=== PATIENT | female | born 1975 | race Caucasian/White ===

== ENCOUNTER 2020-10-15 10:54 | Emergency (ER) | payer SELFPAY ==
[~2020-10-15] VITALS: Ht 167.6 cm; Wt 56.0 kg
[2020-10-15 11:05] VITALS: BP 128/65
[2020-10-15] MEDS ORDERED: SMZ/TMP 800/160MG TABLET. PO ONE (11:45)
[2020-10-15] MEDS ORDERED: LIDOCAINE 1% Multi-Dose 20 ML VIAL. INJ ONE (11:45)
[2020-10-15] MEDS ORDERED: MUPI22OI2 TP (12:54)
[2020-10-15] MEDS ORDERED: HYDR-2761 PO (12:54)
[2020-10-15] MEDS ORDERED: SULF1TAB24 PO (12:54)
--- NOTE | 2020-10-15 12:54 | PHYS DOC ---
Past Medical History Past Medical History: Abscess Past Surgical History: Smoking Status: Current Every Day Smoker Alcohol Use: Occasionally Drug Use: None General Adult EDM: Chief Complaint: ABSCESS HPI: HPI: Patient is a 45 year old female presents emergency department complaining of an abscess on the right side of her neck for the past 2 weeks. 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 Patient states that she had an abscess on her neck one other time approximately a year and a half ago. Patient states she has not had any other abscesses or skin infections since or before her 1 year and a half ago. Patient states it does not hurt unless you touch it. Patient states that she has not tried to express anything from the abscess. Patient denies fever chills, denies shortness of breath or congestion, denies chest pains. Patient states her tetanus immunization is up-to-date. Patient denies any allergies to medications, denies taking any home medications. Patient states they put her on an oral antibiotic last time and it worked well for her. Review of Systems: Review of Systems: 14 body systems of review of systems have been reviewed. See HPI for pertinent positives and negative responses, otherwise all other systems are negative, nonpertinent or noncontributory. Heart Score: Risk Factors: Risk Factors: DM, Current or recent (<one month) smoker, HTN, HLP, family history of CAD, obesity. Risk Scores: Score 0 - 3: 2.5% MACE over next 6 weeks - Discharge Home Score 4 - 6: 20.3% MACE over next 6 weeks - Admit for Clinical Observation Score 7 - 10: 72.7% MACE over next 6 weeks - Early Invasive Strategies Current Medications: Current Medications Medications (Trade) Dose Ordered Sig/Dileep Start Time Stop Time Status Last Admin Dose Admin Lidocaine HCl (Lidocaine 1% 20ml Vial) 20 ml 1X ONCE 10/15/20 11:45 10/15/20 11:46 DC 10/15/20 11:49 20 ML Trimethoprim/ Sulfamethoxazole (Bactrim Ds) 1 tab 1X ONCE 10/15/20 11:45 10/15/20 11:46 DC 10/15/20 11:49 1 TAB Allergies: Allergies: Allergies Coded Allergies Type Severity Reaction Last Updated Verified No Known Drug Allergies 09/27/14 No Physical Exam: PE: Constitutional: Well developed, well nourished, no acute distress, non-toxic appearance. [] HENT: Normocephalic, atraumatic, bilateral external ears normal, oropharynx moist, no oral exudates, nose normal. [] Eyes: PERRLA, EOMI, conjunctiva normal, no discharge. [] Neck: Normal range of motion, no tenderness, supple, no stridor. [] Cardiovascular:Heart rate regular rhythm, no murmur [] Lungs & Thorax: Bilateral breath sounds clear to auscultation [] Abdomen: Bowel sounds normal, soft, no tenderness, no masses, no pulsatile masses. [] Skin: Warm, dry, no erythema, no rash. 1.5 cm diameter abscess to right side of neck near mandibular angle with a central punctum, fluctuant, no purulent drainage. Back: No tenderness, no CVA tenderness. [] Extremities: No tenderness, no cyanosis, no clubbing, ROM intact, no edema. [] Neurologic: Alert and oriented X 3, normal motor function, normal sensory function, no focal deficits noted. [] Psychologic: Affect normal, judgement normal, mood normal. [] Current Patient Data: Vital Signs: Vital Signs Date Time Temp Pulse Resp B/P (MAP) Pulse Ox O2 Delivery O2 Flow Rate FiO2 10/15/20 11:05 98.1 84 16 128/65 (86) 96 Room Air 98.1 EKG: EKG: [] Radiology/Procedures: Radiology/Procedures: [] Course & Med Decision Making: Course & Med Decision Making Pertinent Labs and Imaging studies reviewed. (See chart for details) 45-year-old female, vital signs reviewed, abscess to right side of neck, physical exam was not concerning for deep tissue infection, see I&D note, abscess culture sent to lab Patient was treated in the ED with 1 Bactrim DS p.o. Patient will be discharged with prescription for Bactrim DS p.o., mupirocin ointment, [place] for Patient gave verbal understanding of wound care, return to ER precautions and concerns, home antibiotic use, see primary care physician soon, gave no further questions or concerns and was discharged home without incident. Impression: Abscess Dragon Disclaimer: Dragbenjamin Disclaimer: This electronic medical record was generated, in whole or in part, using a voice recognition dictation system. Departure Departure Impression: Primary Impression: Abscess Disposition: 01 DC HOME SELF CARE/HOMELESS Condition: GOOD Referrals: NO PCP (PCP) Patient Instructions: Abscess Additional Instructions: Take prescribed antibiotics as directed, return to the emergency department for worsening symptoms other concerns, follow-up with your doctor soon. EMERGENCY DEPARTMENT GENERAL DISCHARGE INSTRUCTIONS Thank you for coming to [facility] Emergency Department (ED) today and trusting us with you care. We trust that you had a positive experience in our Emergency Department. If you wish to speak to the department management, you may call the Director at [phone]. YOUR FOLLOW UP INSTRUCTIONS ARE FOLLOWS: 1. Do you have a private Doctor? If you do not have a private doctor, please ask for a resource list of physicians or clinics that may be able to assist you with follow up care. 2. The Emergency Physicain has interpreted your x-rays. The X-Ray specialist will also review them. If there is a change in the findings, you will be notified in 48 hours when at all possible. 3. A lab test or culture has been done, your results will be reviewed and you will be notified if you need a change in treatment. ADDITIONAL INSTRUCTIONS AND INFORMATION: 1. Your care today has been supervised by a physician who is specially trained in emergency care. Many problems require more than one evaluation for a complete diagnosis and treatment. We recommend that you schedule your follow up appointment as recommended to ensure complete treatment of you illness or injury. If you are unable to obtain follow up care and continue to have a problem, or if your condition worsens, we recommend that you return to the ED. 2. We are not able to safely determine your condition over the phone nor are we able to give sound medical advice over the phone. For these safety reasons, if you call for medical advice we will ask you to come to the ED for further evaluation. 3. If you have any questions regarding these discharge instructions please call the ED at [phone]. SAFETY INFORMATION: In the interest of safety, wellness, and injury prevention; we encourage you to wear your sealbelt, if you smoke; quite smoking, and we encourage family to use a protective helmet for bicycling and other sporting events that present an increased risk for head injury. IF YOUR SYMPTOMS WORSEN OR NEW SYMPTOMS DEVELOP, OR YOU HAVE CONCERNS ABOUT YOUR CONDITION; OR IF YOUR CONDITION WORSENS WHILE YOU ARE WAITING FOR YOUR FOLLOW UP APPOINTMENT; EITHER CONTACT YOUR PRIMARY CARE DOCTOR, THE PHYSICIAN WHOSE NAME AND NUMBER YOU WERE GIVEN, OR RETURN TO THE ED IMMEDIATELY. Scripts Hydrocodone Bit/Acetaminophen (HYDROCODONE-APAP 5-325 ) 1 Tab Tablet 1 TAB PO PRN Q6HRS PRN for PAIN, #6 TAB 0 Refills Prov: MALLORY VERA APRN 10/15/20 Mupirocin (MUPIROCIN OINTMENT) 22 Gm Oint...g. 1 ANKITA TP TID for WOUND CARE, #1 TUBE Prov: MALLORY VERA APRN 10/15/20 Sulfamethoxazole/Trimethoprim (BACTRIM DS TABLET) 1 Each Tablet 1 TAB PO BID for ABSCESS for 10 Days, #20 TAB 0 Refills Prov: MALLORY VERA APRN 10/15/20 Incision and Drainage Indication: abscess Procedure: The patient was positioned appropriately. Local anesthesia was achieved with 6 cc 1% lidocaine without epinephrine. An incision was then made over the apex of the lesion and approximately 3 cc purulent material was expressed. The drainage cavity was irrigated with 250 cc normal saline, the loculations were broken up with curved forceps, reirrigated with 250 cc normal saline, the abscess did not require packing.. The patients tetanus status was up-to-date. Band-Aid was placed over the I&D site The patient tolerated the procedure well. Complications: none. MALLORY VERA APRN Oct 15, 2020 12:54
== END 2020-10-15 13:06 | disposition home or self-care (01) ==
LOC: ER 10:54
DX: L02.11 Cutaneous abscess of neck (principal); F17.200 Nicotine dependence, unspecified, uncomplicated
CPT/HCPCS: 10060; 87071; 87075; 99283; J3490; 10061; 99284